=== PATIENT | male | born 2000 | race Caucasian/White ===

== ENCOUNTER 2020-08-08 17:55 | Emergency (ER) | payer OTHER ==
[~2020-08-08] VITALS: Ht 172.7 cm; Wt 103.6 kg
[2020-08-08 17:56] VITALS: BP 130/83
[2020-08-08] MEDS ORDERED: ACETAMINOPHEN TAB 650MG DOSE (2X325MG) PO ONE (20:45)
[2020-08-08] MEDS ORDERED: traMADol 50 MG TAB PO ONE (20:45)
[2020-08-08] MEDS ORDERED: NAPR-837 PO (20:59)
== END 2020-08-08 21:16 | disposition home or self-care (01) ==
LOC: M ED 17:55
DX: S46.911A Strain of unspecified muscle, fascia and tendon at shoulder and upper arm level, right arm, initial encounter (principal); X50.0XXA Overexertion from strenuous movement or load, initial encounter; Y99.1 Military activity; Y92.9 Unspecified place or not applicable

== ENCOUNTER 2021-03-17 15:42 | Emergency (ER) | payer OTHER ==
[~2021-03-17] VITALS: Ht 172.7 cm; Wt 109.1 kg
[~2021-03-17 15:42] MED LIST: NAPR-837 PO
--- NOTE | 2021-03-17 17:59 | REP ---
INDICATION: feels like dislocated rib left post. COMPARISON: None. TECHNIQUE: Five views including PA chest. FINDINGS: PA chest radiograph shows no evidence of pneumothorax or hydrothorax. Mediastinum is not widened. Heart size is normal. Lung taylor are clear. Pulmonary vasculature is not increased. Multiple views of the left ribcage show no visible rib fracture or rib displacement. Posterior costo vertebral joints appear normally aligned. No bony destructive lesion is seen. IMPRESSION: Negative left rib series. <Electronically signed by Christian Martinez > 03/17/21 [id number]
[2021-03-17] MEDS ORDERED: NAPR-837 PO (20:29)
[2021-03-17 20:37] VITALS: BP 167/95
== END 2021-03-17 20:35 | disposition home or self-care (01) ==
LOC: M ED 15:42
DX: G58.9 Mononeuropathy, unspecified (principal); F17.210 Nicotine dependence, cigarettes, uncomplicated

== ENCOUNTER 2021-08-19 06:39 | Emergency (ER) | payer OTHER ==
[~2021-08-19] VITALS: Ht 172.7 cm; Wt 117.8 kg
[2021-08-19] MEDS ORDERED: LEVO150T7 (06:48)
[2021-08-19] MEDS ORDERED: ACETAMINOPHEN 500 MG TAB PO ONE (08:00)
[2021-08-19] MEDS ORDERED: NS 1,000 ML IV ONE (08:00)
[2021-08-19 08:36] LABS: BASO % 0.4 % (0.0-1.0); EOS # 0.1 10^3/uL (0.0-0.5); EOS % 0.8 % (0.0-3.0); HEMATOCRIT 46.9 % (42.0-52.0); LYMPH # 0.9 10^3/uL (1.5-5.0); LYMPH % 8.8 % (24.0-44.0); MEAN CORPUSCULAR HEMOGLOBIN 28.7 pg (27.0-33.0); MEAN CORPUSCULAR HGB CONC 34.1 g/dl (32.0-36.5); MEAN CORPUSCULAR VOLUME 84.2 fl (80.0-96.0); MONO # 0.7 10^3/uL (0.0-0.8); MONO % 6.5 % (2.0-8.0); NEUTROPHILS # 8.8 10^3/uL (1.5-8.5); NEUTROPHILS % 83.1 % (36.0-66.0); PLATELET COUNT, AUTOMATED 262 10^3/uL (150-450); RED BLOOD COUNT 5.57 10^6/uL (4.30-6.10); WHITE BLOOD COUNT 10.6 10^3/uL (4.0-10.0)
[2021-08-19 08:38] LABS: APPEARANCE, URINE CLEAR (CLEAR); BACTERIA, URINE AUTO NEGATIVE (NEGATIVE); BILIRUBIN, URINE AUTO NEGATIVE (NEGATIVE); BLOOD, URINE BLOOD NEGATIVE (NEGATIVE); COLOR, URINE YELLOW (YELLOW); GLUCOSE, URINE (UA) AUTO NEGATIVE (NEGATIVE); KETONE, URINE AUTO NEGATIVE (NEGATIVE); LEUKOCYTE ESTERASE, URINE AUTO NEGATIVE (NEGATIVE); NITRITE, URINE AUTO NEGATIVE (NEGATIVE); PROTEIN, URINE AUTO NEGATIVE (NEGATIVE); RBC, URINE AUTO 2 /HPF (0-3); SPECIFIC GRAVITY URINE AUTO 1.016 (1.002-1.035); SQUAMOUS EPITHELIAL CELL UR AU 0 /HPF (0-6); UROBILINOGEN, URINE AUTO 0.2 mg/dL (0.0-2.0); WBC, URINE AUTO 0 /HPF (0-3)
[2021-08-19 08:55] LABS: ALBUMIN 4.3 GM/DL (3.2-5.2); BILIRUBIN,DIRECT 0.3 MG/DL (0.0-0.2); BILIRUBIN,TOTAL 0.9 MG/DL (0.2-1.0); TOTAL PROTEIN 8.3 GM/DL (6.4-8.2)
[2021-08-19] MEDS ORDERED: ISOVUE-370 76% 100ML VIAL As Ordered ONE (10:29)
--- NOTE | 2021-08-19 10:51 | REP ---
INDICATION: rllq, llq ttp, r/o appendicitis. COMPARISON: None. TECHNIQUE: Standard helical technique after the intravenous administration of 100 cc Isovue 370 FINDINGS: The lung bases are clear. There is evidence of diffuse low density throughout the hepatic parenchyma. There are no enhancing hepatic masses. The spleen, pancreas, adrenal glands, and kidneys are within normal limits. The abdominal aorta and para-aortic regions are within normal limits. There is no free fluid or free air. There is no mass or adenopathy. The bowel loops and the mesenteries are within normal limits. The appendix is well visualized. Bone window technique throughout the examination shows the osseous structures to be within normal limits. IMPRESSION: There is evidence of diffuse fatty infiltration of the liver. There is no evidence of acute disease. <Electronically signed by Terrence Chang > 08/19/21 1046
[2021-08-19 11:26] VITALS: BP 144/91
== END 2021-08-19 11:40 | disposition home or self-care (01) ==
LOC: M ED 06:39
DX: M79.10 Myalgia, unspecified site (principal); R53.83 Other fatigue; R10.9 Unspecified abdominal pain; R50.9 Fever, unspecified; K76.0 Fatty (change of) liver, not elsewhere classified; T50.Z95A Adverse effect of other vaccines and biological substances, initial encounter; Y92.89 Other specified places as the place of occurrence of the external cause; E03.9 Hypothyroidism, unspecified; Z87.891 Personal history of nicotine dependence; Z79.890 Hormone replacement therapy
CPT/HCPCS: 74177; 80047; 80076; 81001; 83690; 85025; 96360; 99284; Q9967